=== PATIENT | female | born 1980 | race Caucasian/White ===

== ENCOUNTER 2017-11-06 19:17 | Emergency (ER) | payer OTHER ==
[~2017-11-06] VITALS: Ht 165.1 cm; Wt 79.4 kg
[~2017-11-06 19:17] MED LIST: CLARITIN-D 10 M1 T21 PO; FLONASE 0.05% 121 EA NAS; LEVOTHYROXINE0.2 MG PO; PREDNICOT10 MG PO; ROBITUSSIN DM 105 ML PO; XANAX0.5 MG PO
[2017-11-06] MEDS ORDERED: BUPROPION75 MG PO (19:34)
[2017-11-06] MEDS ORDERED: SIMVASTATIN10 MG PO (19:34)
[2017-11-06] MEDS ORDERED: NIFEDIPINE ER60 M1 PO (19:35)
[2017-11-06] MEDS ORDERED: HYDROCHLOROTHIA25 M1 PO (19:36)
[2017-11-06] MEDS ORDERED: SEPTDS PO (19:50)
== END 2017-11-06 19:53 | disposition home or self-care (01) ==
LOC: ED 19:17
DX: L03.011 Cellulitis of right finger (principal); Z98.890 Other specified postprocedural states; Z79.899 Other long term (current) drug therapy; Z88.0 Allergy status to penicillin; Z88.6 Allergy status to analgesic agent; Z88.1 Allergy status to other antibiotic agents

== ENCOUNTER 2023-07-02 18:21 | Emergency (ER) | payer OTHER ==
[~2023-07-02] VITALS: Ht 167.6 cm; Wt 86.2 kg
[~2023-07-02 18:21] MED LIST changes: +BUPROPION75 MG PO; +HYDROCHLOROTHIA25 M1 PO; +NIFEDIPINE ER60 M1 PO; +SEPTDS PO; +SIMVASTATIN10 MG PO
[2023-07-02 21:26] LABS: BASO # 0.1 10*3/uL (0.0-0.1); BASO % 0.6 % (0.0-1.0); EOS # 0.3 10*3/uL (0.0-0.4); EOS % 1.5 % (1.0-4.0); HEMATOCRIT 42.7 % (37.0-47.0); LYMPH # 4.8 10*3/uL (1.3-4.4); LYMPH % 27.7 % (27.0-41.0); MEAN CELL VOLUME 90.9 fl (81.0-99.0); MEAN CORPUSCULAR HGB 31.3 pg (27.0-31.0); MEAN CORPUSCULAR HGB CONC 34.4 g/dl (33.0-37.0); MEAN PLATELET VOLUME 9.6 fl (9.6-12.3); MONO # 1.1 10*3/uL (0.1-1.0); MONO % 6.4 % (3.0-9.0); NEUT # 10.8 10*3/uL (2.3-7.9); NEUT % 63.3 % (47.0-73.0); PLATELET COUNT AUTOMATED 485 10*3/uL (130-400); RED CELL DISTRI WIDTH 11.8 % (0-14.5); WHITE BLOOD COUNT 17.1 10*3/uL (4.8-10.8)
[2023-07-02 21:45] LABS: ALKALINE PHOSPHATASE 102 U/L (46-116); BUN 15 mg/dl (9-23); CHLORIDE 99 mmol/L (98-107); POTASSIUM 3.7 mmol/L (3.4-5.1); SGPT/ALT 19 U/L (10-49); TOTAL PROTEIN 8.3 gm/dL (6.0-8.0)
[2023-07-02] MEDS ORDERED: OMNICEF300 MG PO (22:44)
== END 2023-07-02 22:58 | disposition home or self-care (01) ==
LOC: ED 18:21
PROVIDERS: Internal Medicine
DX: J32.9 Chronic sinusitis, unspecified (principal); Z88.0 Allergy status to penicillin; Z88.6 Allergy status to analgesic agent; Z88.8 Allergy status to other drugs, medicaments and biological substances; Z98.890 Other specified postprocedural states; Z90.49 Acquired absence of other specified parts of digestive tract

== ENCOUNTER 2023-08-05 21:59 | Emergency (ER) | payer OTHER ==
[~2023-08-05] VITALS: Wt 94.3 kg
[~2023-08-05 21:59] MED LIST changes: +OMNICEF300 MG PO
[2023-08-05] MEDS ORDERED: CLINDAMYCIN HC300 MG PO (23:02)
== END 2023-08-05 23:05 | disposition home or self-care (01) ==
LOC: ED 21:59
DX: K04.7 Periapical abscess without sinus (principal); R50.9 Fever, unspecified; M79.10 Myalgia, unspecified site; Z88.0 Allergy status to penicillin; Z88.6 Allergy status to analgesic agent; Z88.8 Allergy status to other drugs, medicaments and biological substances; Z98.890 Other specified postprocedural states; Z20.822 Contact with and (suspected) exposure to COVID-19; F17.290 Nicotine dependence, other tobacco product, uncomplicated

== ENCOUNTER 2023-10-18 12:47 | Emergency (ER) | payer OTHER ==
[~2023-10-18] VITALS: Ht 162.5 cm; Wt 81.6 kg
[~2023-10-18 12:47] MED LIST changes: +CLINDAMYCIN HC300 MG PO
[2023-10-18] MEDS ORDERED: LEVOFLOXACIN750 M2 PO (13:22)
== END 2023-10-18 13:27 | disposition home or self-care (01) ==
LOC: ED 12:47
DX: J02.0 Streptococcal pharyngitis (principal); Z88.0 Allergy status to penicillin; Z88.6 Allergy status to analgesic agent; Z88.1 Allergy status to other antibiotic agents; Z79.899 Other long term (current) drug therapy; Z79.2 Long term (current) use of antibiotics; Z98.890 Other specified postprocedural states

== ENCOUNTER → 2023-11-17 | Outpatient (CLI) | payer OTHER ==
[~2023-11-17] MED LIST changes: +LEVOFLOXACIN750 M2 PO
== END | disposition home or self-care (01) ==
LOC: RAD 13:56
PROVIDERS: ATTEND Nurse Practitioner Family
DX: R05.1 Acute cough (principal)

== ENCOUNTER 2024-01-01 12:31 | Emergency (ER) | payer OTHER ==
[~2024-01-01] VITALS: Ht 162.5 cm; Wt 79.4 kg
[2024-01-01] MEDS ORDERED: POLYMYXIN B/TRI10 M1 OPH (12:48)
== END 2024-01-01 12:42 | disposition home or self-care (01) ==
LOC: ED 12:31
DX: H10.9 Unspecified conjunctivitis (principal); Z88.0 Allergy status to penicillin; Z88.6 Allergy status to analgesic agent; Z88.8 Allergy status to other drugs, medicaments and biological substances; Z90.49 Acquired absence of other specified parts of digestive tract; Z98.890 Other specified postprocedural states

== ENCOUNTER 2024-06-18 19:30 | Emergency (ER) | payer OTHER ==
[~2024-06-18] VITALS: Ht 162.5 cm; Wt 90.7 kg
[~2024-06-18 19:30] MED LIST changes: +POLYMYXIN B/TRI10 M1 OPH
[2024-06-18] MEDS ORDERED: TAMIFLU 75MG CA75 MG PO ×2 (21:42→22:40)
== END 2024-06-18 23:00 | disposition home or self-care (01) ==
LOC: ED 19:30
DX: J10.1 Influenza due to other identified influenza virus with other respiratory manifestations (principal); Z20.822 Contact with and (suspected) exposure to COVID-19; R11.2 Nausea with vomiting, unspecified; Z88.0 Allergy status to penicillin; Z88.6 Allergy status to analgesic agent; Z88.8 Allergy status to other drugs, medicaments and biological substances; Z90.49 Acquired absence of other specified parts of digestive tract; Z98.890 Other specified postprocedural states

== ENCOUNTER 2024-08-05 15:02 | Emergency (ER) | payer OTHER ==
[~2024-08-05] VITALS: Ht 162.5 cm; Wt 90.7 kg
[~2024-08-05 15:02] MED LIST changes: +TAMIFLU 75MG CA75 MG PO
[2024-08-05] MEDS ORDERED: BENICAR20 MG PO (15:15)
[2024-08-05] MEDS ORDERED: SODIUM CHLORIDE 0.9% 500 ML IV ONE (16:10)
[2024-08-05] MEDS ORDERED: Ondansetron Hydrochloride 4 MG/2 ML VIAL IV ONE (16:15)
[2024-08-05] MEDS ORDERED: ACETAMINOPHEN 325 MG TAB PO ONE (16:20)
[2024-08-05 16:31] LABS: BASO # 0.1 10*3/uL (0.0-0.1); BASO % 0.5 % (0.0-1.0); EOS # 0.2 10*3/uL (0.0-0.4); EOS % 1.2 % (1.0-4.0); HEMATOCRIT 41.9 % (37.0-47.0); MEAN CELL VOLUME 90.7 fl (81.0-99.0); MEAN CORPUSCULAR HGB 31.8 pg (27.0-31.0); MEAN CORPUSCULAR HGB CONC 35.1 g/dl (33.0-37.0); MEAN PLATELET VOLUME 9.6 fl (9.6-12.3); MONO # 1.5 10*3/uL (0.1-1.0); MONO % 8.2 % (3.0-9.0); NEUT # 11.6 10*3/uL (2.3-7.9); NEUT % 65.8 % (47.0-73.0); PLATELET COUNT AUTOMATED 429 10*3/uL (130-400); RED BLOOD COUNT 4.62 10*6/uL (4.10-5.10); RED CELL DISTRI WIDTH 11.9 % (0-14.5); WHITE BLOOD COUNT 17.6 10*3/uL (4.8-10.8)
[2024-08-05 16:50] LABS: BUN 7 mg/dl (9-23); CHLORIDE 98 mmol/L (98-107); POTASSIUM 3.5 mmol/L (3.4-5.1)
[2024-08-05] MEDS ORDERED: AVPAK AZITHROM250 M1 PO (18:19)
[2024-08-05] MEDS ORDERED: PREDNISONE20 M1 PO (18:19)
[2024-08-05] MEDS ORDERED: methylPREDNISolone sod succ 125 MG VIAL IV ONE (18:25)
[2024-08-05] MEDS ORDERED: AZITHROMYCIN 250 MG TAB PO ONE (18:25)
== END 2024-08-05 18:46 | disposition home or self-care (01) ==
LOC: ED 15:02
PROVIDERS: Nurse Practitioner Family
DX: J40 Bronchitis, not specified as acute or chronic (principal); Z20.822 Contact with and (suspected) exposure to COVID-19; D72.829 Elevated white blood cell count, unspecified; Z88.0 Allergy status to penicillin; Z88.6 Allergy status to analgesic agent; Z88.8 Allergy status to other drugs, medicaments and biological substances; Z90.49 Acquired absence of other specified parts of digestive tract; Z98.890 Other specified postprocedural states

== ENCOUNTER 2024-11-16 20:14 | Emergency (ER) | payer OTHER ==
[~2024-11-16] VITALS: Ht 162.5 cm; Wt 86.2 kg
[~2024-11-16 20:14] MED LIST changes: +AVPAK AZITHROM250 M1 PO; +BENICAR20 MG PO; +PREDNISONE20 M1 PO
[2024-11-16] MEDS ORDERED: BUPROPION HYDR150 M3 PO (20:26)
[2024-11-16] MEDS ORDERED: TRAZODONE100 MG PO (20:26)
[2024-11-16] MEDS ORDERED: ATOMOXETINE HCL80 MG PO (20:26)
[2024-11-16] MEDS ORDERED: TRI-SPRINTEC T1 EACH PO (20:27)
[2024-11-16] MEDS ORDERED: GOOD NEIGHBOR L10 MG PO (20:27)
[2024-11-16] MEDS ORDERED: Ondansetron Hydrochloride 4 MG/2 ML VIAL IV ONE (20:45)
[2024-11-16] MEDS ORDERED: SODIUM CHLORIDE 0.9% 1,000 ML IV ONE (20:45)
[2024-11-16 20:51] LABS: BASO % 0.5 % (0.0-1.0); EOS % 0.6 % (1.0-4.0); HEMATOCRIT 35.5 % (37.0-47.0); MEAN CELL VOLUME 90.3 fl (81.0-99.0); MEAN CORPUSCULAR HGB CONC 34.4 g/dl (33.0-37.0); MEAN PLATELET VOLUME 9.4 fl (9.6-12.3); MONO # 0.7 10*3/uL (0.1-1.0); MONO % 10.4 % (3.0-9.0); NEUT # 4.8 10*3/uL (2.3-7.9); NEUT % 71.8 % (47.0-73.0); PLATELET COUNT AUTOMATED 339 10*3/uL (130-400); RED BLOOD COUNT 3.93 10*6/uL (4.10-5.10); WHITE BLOOD COUNT 6.7 10*3/uL (4.8-10.8)
[2024-11-16 21:20] LABS: ALKALINE PHOSPHATASE 95 U/L (46-116); BUN 11 mg/dl (9-23); CHLORIDE 101 mmol/L (98-107); LIPASE 48 U/L (12-53); POTASSIUM 3.3 mmol/L (3.4-5.1); SGPT/ALT 55 U/L (5-49); TOTAL PROTEIN 7.2 gm/dL (6.0-8.0)
[2024-11-16] MEDS ORDERED: POTASSIUM CHLORIDE 20 MEQ TAB PO ONE (21:35)
[2024-11-16] MEDS ORDERED: MAGNESIUM SULFATE 50 ML IV ONE (21:35)
[2024-11-16] MEDS ORDERED: Ketorolac Tromethamine 30 MG/ML VIAL IV ONE (22:50)
[2024-11-16] MEDS ORDERED: ACETAMINOPHEN 325 MG TAB PO ONE (22:55)
[2024-11-16] MEDS ORDERED: Ondansetron4 MG PO (22:56)
== END 2024-11-16 23:31 | disposition home or self-care (01) ==
LOC: ED 20:14
PROVIDERS: Nurse Practitioner Family
DX: J10.1 Influenza due to other identified influenza virus with other respiratory manifestations (principal); R11.2 Nausea with vomiting, unspecified; Z20.822 Contact with and (suspected) exposure to COVID-19; R19.7 Diarrhea, unspecified; E87.6 Hypokalemia; E83.42 Hypomagnesemia; Z88.0 Allergy status to penicillin; Z88.6 Allergy status to analgesic agent; Z88.8 Allergy status to other drugs, medicaments and biological substances; Z90.49 Acquired absence of other specified parts of digestive tract; Z98.890 Other specified postprocedural states

== ENCOUNTER 2024-11-22 08:43 | Emergency (ER) | payer OTHER ==
[~2024-11-22] VITALS: Wt 86.2 kg
[~2024-11-22 08:43] MED LIST changes: +ATOMOXETINE HCL80 MG PO; +BUPROPION HYDR150 M3 PO; +GOOD NEIGHBOR L10 MG PO; +Ondansetron4 MG PO; +TRAZODONE100 MG PO; +TRI-SPRINTEC T1 EACH PO
[2024-11-22] MEDS ORDERED: predniSONE 20 MG TAB PO ONE (09:15)
[2024-11-22] MEDS ORDERED: AZITHROMYCIN 250 MG TAB PO ONE (09:15)
[2024-11-22] MEDS ORDERED: Albuterol Sulf/Ipratropium 3 ML VIAL NEB ONE (10:40)
[2024-11-22 10:51] LABS: HEMATOCRIT 41.1 % (37.0-47.0); MEAN CORPUSCULAR HGB CONC 34.8 g/dl (33.0-37.0); MEAN PLATELET VOLUME 9.9 fl (9.6-12.3); PLATELET COUNT AUTOMATED 311 10*3/uL (130-400); RED BLOOD COUNT 4.62 10*6/uL (4.10-5.10); RED CELL DISTRI WIDTH 12.6 % (0-14.5)
[2024-11-22 10:53] LABS: MANUAL DIFF REFLEX YES
[2024-11-22 11:05] LABS: BUN 11 mg/dl (9-23); CHLORIDE 97 mmol/L (98-107); POTASSIUM 3.3 mmol/L (3.4-5.1)
[2024-11-22 11:09] LABS: ATYPICAL LYMPHS 6 % (0-0); PLATELET SUFFICIENCY NORMAL (NORMAL); TOTAL CELLS COUNTED 100 #CELLS
[2024-11-22] MEDS ORDERED: POTASSIUM CHLORIDE 20 MEQ TAB PO ONE (11:20)
[2024-11-22] MEDS ORDERED: MAGNESIUM OXIDE 400 MG TAB PO ONE (11:20)
[2024-11-22] MEDS ORDERED: SODIUM CHLORIDE 0.9% 1,000 ML IV ONE (11:20)
[2024-11-22] MEDS ORDERED: CEFUROXIME AXE500 MG PO (13:26)
[2024-11-22] MEDS ORDERED: Cefuroxime Axetil 250 MG TAB PO ONE (13:30)
== END 2024-11-22 14:07 | disposition home or self-care (01) ==
LOC: ED 08:43
PROVIDERS: Internal Medicine
DX: J18.9 Pneumonia, unspecified organism (principal); E87.6 Hypokalemia; E83.42 Hypomagnesemia; Z20.822 Contact with and (suspected) exposure to COVID-19; R11.2 Nausea with vomiting, unspecified; R19.7 Diarrhea, unspecified; Z88.0 Allergy status to penicillin; Z88.6 Allergy status to analgesic agent; Z88.8 Allergy status to other drugs, medicaments and biological substances; Z90.49 Acquired absence of other specified parts of digestive tract; Z98.890 Other specified postprocedural states

== ENCOUNTER 2025-03-14 09:59 | Emergency (ER) | payer OTHER ==
[~2025-03-14] VITALS: Wt 83.9 kg
[~2025-03-14 09:59] MED LIST changes: +CEFUROXIME AXE500 MG PO
[2025-03-14] MEDS ORDERED: ACETAMINOPHEN 325 MG TAB PO ONE (10:25)
[2025-03-14] MEDS ORDERED: Clindamycin Hydrochloride 150 MG CAP PO ONE (11:05)
[2025-03-14] MEDS ORDERED: Cleocin150 MG PO (11:25)
== END 2025-03-14 11:31 | disposition home or self-care (01) ==
LOC: ED 09:59
DX: J02.0 Streptococcal pharyngitis (principal); Z20.822 Contact with and (suspected) exposure to COVID-19; Z79.899 Other long term (current) drug therapy; Z88.0 Allergy status to penicillin; Z88.1 Allergy status to other antibiotic agents; Z88.6 Allergy status to analgesic agent; Z98.890 Other specified postprocedural states

== ENCOUNTER 2025-04-14 11:51 | Emergency (ER) | payer OTHER ==
[~2025-04-14] VITALS: Ht 162.5 cm; Wt 82.6 kg
[~2025-04-14 11:51] MED LIST changes: +Cleocin150 MG PO
[2025-04-14] MEDS ORDERED: MEDROL DOSEPAK4 MG PO (13:49)
[2025-04-14] MEDS ORDERED: ZITHROMAX500 MG PO (13:49)
== END 2025-04-14 14:07 | disposition home or self-care (01) ==
LOC: ED 11:51
DX: J02.9 Acute pharyngitis, unspecified (principal); Z79.899 Other long term (current) drug therapy; Z88.0 Allergy status to penicillin; Z88.1 Allergy status to other antibiotic agents; Z88.6 Allergy status to analgesic agent; Z98.890 Other specified postprocedural states